=== PATIENT | female | born 1980 | race Asian ===

== ENCOUNTER 2018-10-30 09:42 | Emergency (ER) | payer OTHER ==
[2018-10-30 09:49] VITALS: BP 124/81
--- NOTE | 2018-10-30 10:22 | ED Physician Documentation ---
History of Present Illness - Stated complaint Stated Complaint: HIGH BP/DIZZY - Chief complaint Chief Complaint: General - History obtained from History obtained from: Patient - Additonal information Additional information: The patient is a 38-year-old female who presents complaining of dizziness/lightheadedness that has been occurring intermittently over the past 3 days. It was worse 3 nights ago, on , and continued on . It was better yesterday, but then last night she noticed recurrent symptoms, and checked her blood pressure and found it to be elevated at "189/143." While at work today at the [employer] office, she again became lightheaded, prompting her presentation to the emergency department. She had nausea and myalgias 4 days ago, but denies current nausea. She denies any chest pain, shortness of breath, fever, abdominal pain, vomiting, diarrhea, or dysuria. She denies history of similar symptoms in the past. Review of Systems Constitutional: reports: Fatigue, Other (lightheaded). denies: Fever Eyes: denies: Irritation Ears: denies: Tinnitus/ringing Nose: denies: Congestion Throat: denies: Sore throat Cardiac: denies: Chest pain / pressure Respiratory: denies: Dyspnea, Cough GI: reports: Nausea. denies: Abdominal Pain, Vomiting, Diarrhea : denies: Dysuria Skin: denies: Rash Musculoskeletal: denies: Back pain, Extremity swelling Neurologic: denies: Focal weakness, Numbness, Headache PD PAST MEDICAL HISTORY - Past Surgical History Past Surgical History: Yes - Present Medications Home Medications: Ambulatory Orders Medication Instructions Recorded Confirmed No Known Home Medications 10/30/18 10/30/18 - Allergies Allergies/Adverse Reactions: Allergies Allergy/AdvReac Type Severity Reaction Status Date / Time codeine Allergy Unknown Verified 10/30/18 09:49 - Social History Does the pt smoke?: Yes Smoking Status: Current every day smoker Does the pt drink ETOH?: No Does the pt have substance abuse?: No - Immunizations Immunizations are current?: Yes PD ED PE NORMAL - Vitals Vital signs reviewed: Yes (normal) - General General: Alert and oriented X 3, Well developed/nourished - HEENT HEENT: Atraumatic, EOMI, Moist mucous membranes, Pharynx benign - Neck Neck: Supple, no meningeal sign, No adenopathy, No JVD - Cardiac Cardiac: RRR, No murmur - Respiratory Respiratory: No respiratory distress, Clear bilaterally - Abdomen Abdomen: Soft, Non tender - Back Back: No CVA TTP, No spinal TTP - Derm Derm: No rash - Extremities Extremities: No edema, No calf tenderness / cord - Neuro Neuro: Alert and oriented X 3, No motor deficit, Normal speech Results - Vitals Vitals: Oxygen O2 Source Room air - EKG (time done) 10:28 Rate: Rate (enter#) (64) Rhythm: NSR [place]: Other (IVCD, borderline.) Intervals: Normal [place] QRS: Normal Ischemia: Normal ST segments Computer interpretation: Agree with computer - Labs Labs: Laboratory Tests 10/30/18 10/30/18 10/30/18 10:28 10:39 10:39 D-Dimer < 200.0 L Sodium 137 Potassium 3.7 Chloride 106 Carbon Dioxide 25 Anion Gap 6.0 BUN 8 Creatinine 0.7 Estimated GFR (MDRD) 94 Glucose 90 Calcium 8.9 Urine Color YELLOW Urine Clarity CLEAR Urine pH 6.5 Ur Specific [place] 1.015 Urine Protein NEGATIVE Urine Glucose (UA) NEGATIVE Urine Ketones NEGATIVE Urine Occult Blood TRACE-INTA Urine Nitrite NEGATIVE Urine Bilirubin NEGATIVE Urine Urobilinogen 0.2 (NORMAL) Ur Leukocyte Esterase NEGATIVE Ur Microscopic Review NOT INDICATED Urine Culture Comments NOT INDICATED PD MEDICAL DECISION MAKING - ED course Complexity details: reviewed results, re-evaluated patient, considered differential, d/w patient, d/w family ED course: The patient's presentation is most consistent with acute viral syndrome, with symptoms consisting of "dizziness," myalgias, nausea, and fatigue. Her chemistry panel, d-dimer, and urinalysis are all normal. Her presentation does not suggest pneumonia, pulmonary embolus, or dehydration. I discussed with her and her the expected course of illness, symptomatic treatment and outpatient follow-up, as well as potentially worrisome signs or symptoms that should prompt reevaluation in the department. Departure - Departure Disposition: 01 Home, Self Care Clinical Impression: Viral syndrome Condition: Stable Instructions: ED Viral Syndrome Follow-Up: Elliot Sandy MD [Physician No Access] - Comments: Drink plenty of fluids. You can use ibuprofen, up to 800 mg 3 times daily for its anti-inflammatory effect. Follow-up with your primary physician within 1-2 weeks. Call to schedule an appointment. Return to the emergency department if you develop increasing lightheadedness, fever with shaking chills, persistent vomiting, or otherwise worsening. Forms: Activity restrictions Discharge Date/Time: 10/30/18 11:44
[2018-10-30 10:35] LABS: BILIRUBIN,URINE NEGATIVE (NEGATIVE); GLUCOSE, URINE (UA) NEGATIVE (NEGATIVE); KETONES,URINE (UA) NEGATIVE (NEGATIVE); LEUKOCYTE ESTERASE, URINE NEGATIVE (NEGATIVE); NITRITE,URINE NEGATIVE (NEGATIVE); OCCULT BLOOD,URINE TRACE-INTA (NEGATIVE); PH,URINE 6.5 PH (5.0-7.5); PROTEIN,URINE NEGATIVE (NEGATIVE); UROBILINOGEN,URINE 0.2 (NORMAL) E.U./dL (NORMAL)
[2018-10-30 10:38] LABS: CLARITY,URINE CLEAR (CLEAR)
[2018-10-30 11:12] LABS: CALCIUM 8.9 mg/dL (8.5-10.3); CREATININE 0.7 mg/dL (0.4-1.0)
== END 2018-10-30 11:44 | disposition home or self-care (01) ==
LOC: ED 09:42
DX: B34.9 Viral infection, unspecified (principal); F17.200 Nicotine dependence, unspecified, uncomplicated
CPT/HCPCS: 36415; 80048; 81001; 81003; 85379; 87086; 93005; 99283

== ENCOUNTER 2020-12-21 11:00 | Outpatient (CLI) | payer OTHER | END 2020-12-21 11:01 | disposition home or self-care (01) | LOC: COV 11:00 | PROVIDERS: ATTEND Family Medicine | DX: R05 Cough (principal); Z20.822 Contact with and (suspected) exposure to COVID-19 ==

== ENCOUNTER 2021-01-24 21:15 | Emergency (ER) | payer SELFPAY ==
--- NOTE | 2021-01-24 21:36 | ED Physician Documentation ---
PD HPI HEADACHE - Stated complaint Stated Complaint: DIZZYNESS, HIGH BP - Chief complaint Chief Complaint: Neuro - History obtained from History obtained from: Patient - History of Present Illness Timing - onset: How many weeks ago (2-3) Timing - onset during: Light activity Timing - details: Intermittant (she has had intermittent vertigo with activity for 2-3 weeks, worse the past couple days. Also having intermittent significant headaches, new for her (remote occasional migraines when younger). The vertigo is not concurrent with headaches. No focal weaknesses nor change/loss of vision with headache.) Worst headache ever?: Worst headache ever? (remote migraines when younger. Recent intermittent headaches are comparable severity. Not related to activity nor pattern of time of day. No URI symptoms. No recent head injury.) Quality: Throbbing, Aching Associated symptoms: Nausea (more with the vertigo than with the headaches.). No: Fever, Stiff neck, Vomiting Improved by: No: Rest, Dark room, Meds (tylenol nor ibuprofen, taken occasionally.) Worsened by: Moving (worsens the vertigo.). No: Light, Noise Contributing factors: No: Hypertension (no history of HTN but noted her BP was elevated today when she took it when feeling vertigo. No near syncope.), Recent illness, Trauma Similar symptoms before: Has not had sx before Recently seen: Not recently seen Review of Systems Constitutional: denies: Fever, Chills, Myalgias, Fatigue, Weight Loss Eyes: denies: Decreased vision, Photophobia Ears: denies: Loss of hearing, Ear pain Nose: denies: Rhinorrhea / runny nose, Congestion Throat: denies: Sore throat Respiratory: denies: Cough GI: reports: Nausea. denies: Abdominal Pain, Vomiting Skin: denies: Rash, Lesions Neurologic: reports: Headache (mostly frontal area). denies: Focal weakness, Numbness, Confused, Altered mental status, Head injury Endocrine: denies: Weight loss Immunocompromised: denies: Immunocompromised PD PAST MEDICAL HISTORY - Past Medical History Cardiovascular: None Respiratory: None Neuro: None Endocrine/Autoimmune: None - Past Surgical History Past Surgical History: Yes - Present Medications Home Medications: Ambulatory Orders Medication Instructions Recorded Confirmed Cetirizine [ZyrTEC] 10 mg PO DAILY #15 tablet 01/24/21 Meclizine HCl [Antivert] 1 tablet PO Q6H PRN #30 tab 01/24/21 dexAMETHasone [Decadron] 4 mg PO DAILY #5 tablet 01/24/21 diazePAM [Valium] 5 mg PO TID PRN #15 tablet 01/24/21 - Allergies Allergies/Adverse Reactions: Allergies Allergy/AdvReac Type Severity Reaction Status Date / Time codeine Allergy Unknown Verified 10/30/18 09:49 - Living Situation Living Situation: reports: With spouse/s.o. Living Arrangement: reports: At home - Social History Does the pt smoke?: Yes Smoking Status: Current every day smoker Does the pt drink ETOH?: No Does the pt have substance abuse?: No - Immunizations Immunizations are current?: Yes PD ED PE NORMAL - Vitals Vital signs reviewed: Yes - General General: Alert and oriented X 3, No acute distress, Well developed/nourished - HEENT HEENT: PERRL, EOMI (with nystagmus noted to the left), Ears normal, Pharynx benign - Neck Neck: Supple, no meningeal sign - Cardiac Cardiac: RRR, No murmur - Respiratory Respiratory: Clear bilaterally - Abdomen Abdomen: Soft, Non tender - Derm Derm: Normal color, Warm and dry - Extremities Extremities: No tenderness to palpate, Normal ROM s pain - Neuro Neuro: Alert and oriented X 3, cognos 2-12 intact, No motor deficit, No sensory deficit, Normal speech, Other Eye Opening: Spontaneous Motor: Obeys Commands Verbal: Oriented GCS Score: 15 Results - Vitals Vitals: Vital Signs - 24 hr 01/24/21 01/24/21 01/24/21 21:26 21:44 23:35 Temperature 36.5 C 36.5 C Heart Rate 80 80 64 Respiratory 16 16 16 Rate Blood Pressure 121/63 121/63 107/72 O2 Saturation 98 98 99 Oxygen O2 Source Room air - EKG (time done) 21:38 Rate: Rate (enter#) (82) Rhythm: NSR [place]: Normal Intervals: Normal [place] QRS: Normal Ischemia: Normal ST segments. No: ST elevation c/w ischemia, ST depression - Labs Labs: Laboratory Tests 01/24/21 01/24/21 01/24/21 21:30 21:36 21:36 WBC 7.8 RBC 4.44 Hgb 13.6 Hct 41.0 MCV 92.3 MCH 30.6 MCHC 33.2 RDW 13.1 Plt Count 249 MPV 10.1 Neut # (Auto) 3.9 Lymph # (Auto) 3.0 [place] # (Auto) 0.7 Eos # (Auto) 0.2 Baso # (Auto) 0.1 Absolute Nucleated RBC 0.00 Nucleated RBC % 0.0 Sodium 138 Potassium 3.8 Chloride 106 Carbon Dioxide 23 Anion Gap 9.0 BUN 14 Creatinine 0.7 Estimated GFR (MDRD) 93 Glucose 102 H POC Whole Bld Glucose Calcium 9.9 Total Bilirubin 0.2 AST 19 ALT 17 Alkaline Phosphatase 57 Troponin I High Sens Total Protein 7.1 Albumin 4.2 Globulin 2.9 Albumin/Globulin Ratio 1.4 Lipase 26 TSH Urine HCG, Qual NEGATIVE 01/24/21 01/24/21 01/24/21 21:36 21:36 21:59 WBC RBC Hgb Hct MCV MCH MCHC RDW Plt Count MPV Neut # (Auto) Lymph # (Auto) [place] # (Auto) Eos # (Auto) Baso # (Auto) Absolute Nucleated RBC Nucleated RBC % Sodium Potassium Chloride Carbon Dioxide Anion Gap BUN Creatinine Estimated GFR (MDRD) Glucose POC Whole Bld Glucose 99 Calcium Total Bilirubin AST ALT Alkaline Phosphatase Troponin I High Sens < 2.3 L Total Protein Albumin Globulin Albumin/Globulin Ratio Lipase TSH 1.75 Urine HCG, Qual - Rads (name of study) head CT Radiology: Prelim report reviewed (normal. no acute abnormality. ), See rad report PD MEDICAL DECISION MAKING - ED course Complexity details: reviewed results, re-evaluated patient (still with some vertigo despite meclizine and decadron. No headache right now. ), considered differential (BP/vitals are normal here. She is still with some vertigo. Has had vertigo, intermittent headaches for 2-3 weeks. Not usually at same time. CT done that is okay. Normal labs. Will treat for inner ear vertigo. To follow up with ENT and also establish primary care. Consider MRI if not improved re: , d/w patient Departure - Departure Disposition: 01 Home, Self Care Clinical Impression: Intermittent headache, Acute severe vertigo Condition: Stable Record reviewed to determine appropriate education?: Yes Instructions: ED Cephalgia Unspecified, ED Vertigo Unspecified Follow-Up: [facility] [Provider Group] [facility] [Provider Group] [facility] [Provider Group] Prescriptions: Meclizine HCl [Antivert] 1 tablet PO Q6H PRN #30 tab PRN Reason: Vertigo dexAMETHasone [Decadron] 4 mg PO DAILY #5 tablet diazePAM [Valium] 5 mg PO TID PRN #15 tablet PRN Reason: Vertigo Cetirizine [ZyrTEC] 10 mg PO DAILY #15 tablet Comments: Stay well-hydrated. Your basic blood tests including blood counts, electrolytes, blood sugar, kidney and liver function and thyroid screen, as well as your head CT scan, are normal. At this point I would presume functional headache such as migraine or tension headache or sinus. The dizziness can come from in your ear inflammation we can treat this with antihistamine and steroid as prescribed. To that add meclizine every 6-8 hours if needed for vertigo or diazepam if needed for worse vertigo. Follow-up with primary care or ENT if not improved well over the next several d ays. The ENT specialist can better distinguish other possible treatment ideas if the initial ones are not working well. Forms: Activity restrictions Discharge Date/Time: 01/24/21 23:59
[2021-01-24 21:44] LABS: BASOPHILS # (AUTO) 0.1 10^3/uL (0.0-0.1); BASOPHILS % (AUTO) 0.6 %; EOSINOPHILS # (AUTO) 0.2 10^3/uL (0.0-0.7); EOSINOPHILS % (AUTO) 2.7 %; HGB - HEMOGLOBIN 13.6 g/dL (12.0-16.0); LYMPHOCYTES % (AUTO) 38.8 %; MEAN CORPUSCULAR HEMOGLOBIN 30.6 pg (27.0-31.0); MEAN CORPUSCULAR HGB CONC 33.2 g/dL (32.0-36.0); MEAN CORPUSCULAR VOLUME 92.3 fL (81.0-99.0); MEAN PLATELET VOLUME 10.1 fL (7.9-10.8); MONOCYTES # (AUTO) 0.7 10^3/uL (0.0-1.0); MONOCYTES % (AUTO) 8.3 %; NEUTROPHILS # (AUTO) 3.9 10^3/uL (1.5-6.6); NEUTROPHILS % (AUTO) 49.5 %; PLT - PLATELET COUNT 249 10^3/uL (130-450); RED BLOOD COUNT 4.44 10^6/uL (4.20-5.40); RED CELL DISTRIBUTION WIDTH 13.1 % (12.0-15.0); WHITE BLOOD COUNT 7.8 x10^3/uL (4.8-10.8)
[2021-01-24 21:53] LABS: HCG UR QUAL NEGATIVE
[2021-01-24] MEDS ORDERED: DEXAMETHASONE 10 MG/ML VIAL IVP STA (22:04)
[2021-01-24] MEDS ORDERED: SODIUM CHLORIDE 0.9% 1,000 ML IV STA (22:04)
[2021-01-24] MEDS ORDERED: MECLIZINE 12.5 MG TABLET PO STA (22:04)
[2021-01-24 22:11] LABS: ALBUMIN 4.2 g/dL (3.2-5.5); ALBUMIN/GLOBULIN RATIO 1.4 (1.0-2.2); BILIRUBIN,TOTAL 0.2 mg/dL (0.2-1.0); CALCIUM 9.9 mg/dL (8.5-10.3); CREATININE 0.7 mg/dL (0.4-1.0); POTASSIUM 3.8 mmol/L (3.5-5.0); TOTAL PROTEIN 7.1 g/dL (6.7-8.2)
[2021-01-24 23:35] VITALS: BP 107/72
--- NOTE | 2021-01-25 07:21 | CT Report ---
PROCEDURE: HEAD WO INDICATIONS: headaches and dizziness episodes for weeks TECHNIQUE: Noncontrast 4.5 mm thick angled axial sections acquired from the foramen magnum to the vertex. For r adiation dose reduction, the following was used: automated exposure control, adjustment of mA and/or kV according to patient size. COMPARISON: None. FINDINGS: Image quality: Excellent. CSF spaces: Basal cisterns are patent. No extra-axial fluid collections. Ventricles are normal in size and shape. Brain: No midline shift. No intracranial masses or hemorrhage. [place]-white matter interface is norm al. Skull and face: Calvarium and visualized facial bones are intact, without suspicious lesions. Sinuses: Visualized sinuses and mastoids are clear. IMPRESSION: No acute intracranial disease process. Reviewed by: Kathie Mahoney MD, PhD on 01/25/2021 7:20 AM PDT Approved by: Kathie Mahoney MD, PhD on 01/25/2021 7:20 AM PDT Station ID: [id number]
== END 2021-01-24 23:59 | disposition home or self-care (01) ==
LOC: ED 21:15
DX: R51.9 Headache, unspecified (principal); R42 Dizziness and giddiness; F17.200 Nicotine dependence, unspecified, uncomplicated
CPT/HCPCS: 36415; 70450; 80053; 81025; 83690; 84443; 84484; 85025; 93005; 96361; 96374; 99284; A9270